=== PATIENT | male | born 1955 | race Caucasian/White ===

== ENCOUNTER → 2017-09-02 | Outpatient (CLI) | payer OTHER ==
[~2017-09-02] MED LIST: ANTIVERT25 MG PO; ASPIR 8181 M1 PO; ASPIRIN EC81 M1 PO; AUGMENTIN 875-1 EACH PO; BUSPAR30 MG PO; CALCIUM 1,0001 EACH PO; CENTRUM SILVER1 EAC4 PO; CINNAMON ALPHA1 EACH PO; CRANBERRY 6,001 EACH PO; DEPAKOTE ER500 MG PO; DEPAKOTE250 MG PO; DIVALPROEX SOD250 M3 PO; FAZACLO PO; FISH OIL 1,0001 EAC8 PO; FOLIC ACID0.4 MG PO; HYDROCODON-ACE1 EAC5 PO; HYDROCODON-ACE1 EAC8 PO; KELP1 EACH PO; LEVAQUIN 750 M750 MG PO; LEVOTHYROXINE0.05 MG PO; MAGNESIUM400 MG PO; MIRTAZAPINE7.5 MG PO; NIFEDICAL XL30 MG PO; NIFEDICAL XL60 MG PO; POLYETHYLENE G454 GM MC; POLYETHYLENE GLY; PROBIOTIC1 EAC1 PO; SAW PALMETTO500 MG PO; SUPER B COMPLE1 EAC2 PO; SYNTHROID75 MCG PO; VENLAFAXIN75 MG/1 T2 PO; VITAMIN D400 UNI1 PO; WELLBUTRIN 100100 M1 PO; WELLBUTRIN 75 M75 M1 PO; WELLBUTRIN SR150 MG PO; XANAX 0.5 MG0.5 M1 PO; ZINC10 MG PO; ZOFRAN 4 MG ORAL4 MG PO
[2017-09-02 16:15] LABS: ALBUMIN 3.5 g/dL (3.4-5.0); CALCIUM 8.7 mg/dL (8.5-10.1); CREATININE 0.8 mg/dL (0.6-1.3); POTASSIUM 4.1 mmol/L (3.5-5.1); TOTAL BILIRUBIN 0.2 mg/dL (<0.1-1.0); TOTAL PROTEIN 6.4 g/dL (6.4-8.2)
== END ==
LOC: M.LAB 15:40
PROVIDERS: Psychiatry & Neurology Psychiatry
DX: F25.0 Schizoaffective disorder, bipolar type (principal)

== ENCOUNTER 2017-10-10 01:18 | Emergency (ER) | payer OTHER ==
[~2017-10-10] VITALS: Ht 175.3 cm; Wt 74.8 kg
[~2017-10-10 01:18] MED LIST changes: -ANTIVERT25 MG PO; -AUGMENTIN 875-1 EACH PO; -LEVAQUIN 750 M750 MG PO; -WELLBUTRIN 75 M75 M1 PO; -ZOFRAN 4 MG ORAL4 MG PO
[2017-10-10] MEDS ORDERED: WELLBUTRIN 75 M75 M1 PO (01:30)
[2017-10-10 01:42] LABS: HEMATOCRIT 42.8 % (42.0-52.0); HEMOGLOBIN 14.8 gm/dL (14.0-18.0); MCHC 34.6 g/dL (28.0-37.0); NUCLEATED RBCS 0 /100WBC
[2017-10-10 01:43] LABS: MCH 30.7 pg (26.0-34.0); MCV 88.6 fL (80.0-100.0); MPV 7.7 fl. (7.2-11.1); PLATELET COUNT* 145 thou/uL (150-400); RBC 4.83 mil/uL (4.50-6.00); RDW-CV 13.1 % (10.5-14.5); WBC 11.6 thou/uL (4.0-11.0)
[2017-10-10 02:03] LABS: ANION GAP 10 mmol/L (7-16); BUN 12 mg/dL (7-18); CALCIUM 8.5 mg/dL (8.5-10.1); CHLORIDE 96 mmol/L (98-107); CO2 27 mmol/L (21-32); CREATININE 0.9 mg/dL (0.6-1.3); GLUCOSE 121 mg/dL (70-99); POTASSIUM 3.7 mmol/L (3.5-5.1); SODIUM 133 mmol/L (136-145)
[2017-10-10 02:17] LABS: ALBUMIN 3.7 g/dL (3.4-5.0); ALKALINE PHOSPHATASE 56 U/L (46-116); INR 1.1; NT-PRO BRAIN NAT PEPTIDE 103 pg/mL (<300); PROTIME 10.7 Seconds (9.20-11.50); SGOT 15 U/L (15-37); SGPT 26 U/L (30-65); TOTAL BILIRUBIN 0.4 mg/dL (<0.1-1.0); TOTAL PROTEIN 6.8 g/dL (6.4-8.2); TROPONIN-I LEVEL <0.06 ng/mL (<0.06)
[2017-10-10 02:19] LABS: INFLUENZA A ANTIGEN None Detected (None Detect); INFLUENZA B ANTIGEN None Detected (None Detect)
[2017-10-10 02:33] LABS: ABSOLUTE MONOCYTES 1.3 thou/uL (0.0-1.2); ABSOLUTE NEUTROPHILS 8.4 thou/uL (1.6-8.1); PLATELET ESTIMATE DECREASED
[2017-10-10 02:34] LABS: TOXIC GRANULATION 1+
[2017-10-10 03:19] LABS: URINE BILIRUBIN NEGATIVE (Negative); URINE BLOOD NEGATIVE (Negative); URINE CLARITY CLEAR; URINE COLOR YELLOW; URINE GLUCOSE-RANDOM NEGATIVE (Negative); URINE KETONES NEGATIVE (Negative); URINE LEUKOCYTES-REFLEX NEGATIVE (Negative); URINE NITRITE-REFLEX NEGATIVE (Negative); URINE PROTEIN NEGATIVE (Negative); URINE UROBILINOGEN 0.2 E.U./dl (0.2-1.0)
[2017-10-10 03:50] VITALS: BP 136/70
--- NOTE | 2017-10-11 12:59 | EKG ---
[place] [address] ELECTROCARDIOGRAM REPORT Name: MARISSA GUARDADO [id number] Admission: 10/10/17 Attend Phys: Discharge: 10/10/17 Date of : 55 Report #: [id number] THIS REPORT FOR: //name// [facility] ED Test Date: 2017-10-10 Test Time: 01:43:40 Pat Name: MARISSA GUARDADO Department: Room: Gender: M Catering Sales Manager: PURA Frank : 1955 Requested By: Leatha Garcia Order Number: [id number] MD: Reuben Manzo Measurements Intervals [place] Rate: 82 P: 40 FL: 152 QRS: 27 QRSD: 88 T: 36 QT: 337 QTc: 394 Interpretive Statements Sinus rhythm Probable left atrial enlargement Borderline low voltage, extremity leads Baseline wander in lead(s) V4 Compared to ECG 05/15/2015 17:35:55 Atrial premature complex(es) no longer present Prolonged QT interval no longer present Electronically Signed On 10-11-2017 12:59:30 CDT by Reuben Manzo [email or web address] <ELECTRONICALLY SIGNED> By: Elena Manzo MD, [facility] 10/11/17 1259 0143 0143 Elena Manzo MD, [facility] /EPI
== END 2017-10-10 04:05 | disposition home or self-care (01) ==
LOC: M.ERS 01:18
PROVIDERS: Emergency Medicine
DX: R53.1 Weakness (principal); R10.9 Unspecified abdominal pain; R11.0 Nausea; Z88.2 Allergy status to sulfonamides

== ENCOUNTER 2017-10-12 12:59 | Emergency (ER) | payer OTHER ==
[~2017-10-12] VITALS: Ht 175.3 cm; Wt 76.7 kg
[~2017-10-12 12:59] MED LIST changes: +WELLBUTRIN 75 M75 M1 PO
[2017-10-12 13:46] LABS: HEMATOCRIT 41.1 % (42.0-52.0); HEMOGLOBIN 14.3 gm/dL (14.0-18.0); MCH 30.5 pg (26.0-34.0); MCHC 34.7 g/dL (28.0-37.0); MCV 87.8 fL (80.0-100.0); NUCLEATED RBCS 0 /100WBC; PLATELET COUNT* 85 thou/uL (150-400); RBC 4.68 mil/uL (4.50-6.00); RDW-CV 12.8 % (10.5-14.5); WBC 8.3 thou/uL (4.0-11.0)
[2017-10-12 13:58] LABS: ANION GAP 13 mmol/L (7-16); APTT 30.8 Seconds (25.0-31.3); BUN 21 mg/dL (7-18); CALCIUM 8.2 mg/dL (8.5-10.1); CHLORIDE 95 mmol/L (98-107); CO2 23 mmol/L (21-32); CREATININE 1.2 mg/dL (0.6-1.3); GLUCOSE 149 mg/dL (70-99); INR 1.2; POTASSIUM 3.3 mmol/L (3.5-5.1); SODIUM 131 mmol/L (136-145)
[2017-10-12 14:00] LABS: ABSOLUTE LYMPHOCYTES 0.8 thou/uL (0.8-5.3); ABSOLUTE MONOCYTES 1.9 thou/uL (0.0-1.2); ABSOLUTE NEUTROPHILS 5.6 thou/uL (1.6-8.1); LARGE PLATELETS FEW; PLATELET ESTIMATE DECREASED
[2017-10-12 14:15] LABS: URINE BILIRUBIN 1+ (Negative); URINE BLOOD NEGATIVE (Negative); URINE CLARITY SL CLOUDY; URINE COLOR DARK YELLOW; URINE GLUCOSE-RANDOM NEGATIVE (Negative); URINE KETONES TRACE (Negative); URINE LEUKOCYTES-REFLEX NEGATIVE (Negative); URINE NITRITE-REFLEX POSITIVE (Negative); URINE PROTEIN 2+ (Negative); URINE SPECIFIC GRAVITY 1.025 (1.005-1.030)
[2017-10-12 14:19] LABS: ALBUMIN 2.9 g/dL (3.4-5.0); ALKALINE PHOSPHATASE 45 U/L (46-116); CK-MB MASS 1.5 ng/mL (<0.5-3.6); NT-PRO BRAIN NAT PEPTIDE 130 pg/mL (<300); SGOT 82 U/L (15-37); SGPT 74 U/L (30-65); TOTAL BILIRUBIN 0.5 mg/dL (<0.1-1.0); TOTAL PROTEIN 6.2 g/dL (6.4-8.2); TROPONIN-I LEVEL <0.06 ng/mL (<0.06)
[2017-10-12 14:38] LABS: CRYSTALS None Seen /LPF (None Seen); HYALINE CASTS >10 Many /LPF (None Seen); SQUAMOUS 0-3 Few /LPF (0-3); URINE RBC None Seen /HPF (0-2); URINE WBC-REFLEX 0-5 Rare /HPF (0-5)
[2017-10-12 14:39] LABS: ICTOTEST (BILI CONFIRMATORY) Negative (Negative)
[2017-10-12] MEDS ORDERED: LEVAQUIN 750 M750 MG PO (14:48)
[2017-10-12] MEDS ORDERED: ZOFRAN 4 MG ORAL4 MG PO (14:48)
[2017-10-12] MEDS ORDERED: ANTIVERT25 MG PO (14:48)
[2017-10-12] MEDS ORDERED: AUGMENTIN 875-1 EACH PO (14:50)
[2017-10-12 15:31] VITALS: BP 116/69
--- NOTE | 2017-10-12 16:49 | EKG ---
[place] [address] ELECTROCARDIOGRAM REPORT Name: MARISSA GUARDADO [id number] Admission: 10/12/17 Attend Phys: Discharge: 10/12/17 Date of : 55 Report #: [id number] THIS REPORT FOR: //name// [facility] ED Test Date: 2017-10-12 Test Time: 13:21:07 Pat Name: MARISSA GUARDADO Department: Room: Gender: M Caving Guide: MARLA : 1955 Requested By: Gómez Arzate Order Number: [id number] MD: Rasta Martinez Measurements Intervals [place] Rate: 77 P: 56 GA: 142 QRS: 53 QRSD: 90 T: 54 QT: 349 QTc: 395 Interpretive Statements Sinus rhythm Baseline wander in lead(s) V4 Compared to ECG 10/10/2017 01:43:40 No significant changes Electronically Signed On 10-12-2017 16:49:23 CDT by Rasta Martinez [email or web address] <ELECTRONICALLY SIGNED> By: Rasta Martinez MD, [facility] 10/12/17 1649 D: 03/1320 1321 Rasta Martinez MD, [facility] /EPI
== END 2017-10-12 15:32 | disposition home or self-care (01) ==
LOC: M.ERS 12:59
PROVIDERS: Emergency Medicine Emergency Medical Services
DX: R42 Dizziness and giddiness (principal); J18.9 Pneumonia, unspecified organism; N39.0 Urinary tract infection, site not specified

== ENCOUNTER → 2019-05-20 | Outpatient (CLI) | payer OTHER ==
[~2019-05-20] MED LIST changes: +ANTIVERT25 MG PO; +AUGMENTIN 875-1 EACH PO; +LEVAQUIN 750 M750 MG PO; +ZOFRAN 4 MG ORAL4 MG PO
[2019-05-20 16:47] LABS: ALBUMIN 3.5 g/dL (3.4-5.0); CALCIUM 8.9 mg/dL (8.5-10.1); CREATININE 0.9 mg/dL (0.6-1.3); TOTAL BILIRUBIN 0.3 mg/dL (<0.1-1.0); TOTAL PROTEIN 6.5 g/dL (6.4-8.2)
== END ==
LOC: M.LAB 15:48
PROVIDERS: Psychiatry & Neurology Psychiatry
DX: F25.0 Schizoaffective disorder, bipolar type (principal)

== ENCOUNTER 2020-04-30 15:09 | Emergency (ER) | payer OTHER ==
[~2020-04-30] VITALS: Ht 175.3 cm; Wt 81.7 kg
[2020-04-30] MEDS ORDERED: CLONAZEPAM 0.50.5 M1 PO (15:31)
[2020-04-30] MEDS ORDERED: DEPAKOTE ER500 M1 PO (15:31)
[2020-04-30] MEDS ORDERED: [UNRECOGNIZED DRUG - OTHER] (15:32)
[2020-04-30 16:17] LABS: INFLUENZA A ANTIGEN Negative (Negative); INFLUENZA B ANTIGEN Negative (Negative)
[2020-04-30 16:34] LABS: URINE BILIRUBIN NEGATIVE (Negative); URINE BLOOD NEGATIVE (Negative); URINE CLARITY CLEAR; URINE COLOR YELLOW; URINE GLUCOSE-RANDOM NEGATIVE (Negative); URINE KETONES 1+ (Negative); URINE LEUKOCYTES-REFLEX NEGATIVE (Negative); URINE NITRITE-REFLEX NEGATIVE (Negative); URINE PROTEIN TRACE (Negative); URINE SPECIFIC GRAVITY >= 1.030 (1.005-1.030); URINE UROBILINOGEN 0.2 E.U./dl (0.2-1.0)
[2020-04-30 17:03] LABS: ABSOLUTE BASOPHILS 0.1 thou/uL (0.0-0.2); ABSOLUTE EOSINOPHILS 0.2 thou/uL (0.0-0.7); ABSOLUTE LYMPHOCYTES 2.1 thou/uL (0.8-5.3); ABSOLUTE MONOCYTES 1.9 thou/uL (0.0-1.2); ABSOLUTE NEUTROPHILS 8.2 thou/uL (1.6-8.1); BASOPHILS 0.4 %; EOSINOPHILS 1.6 %; HEMATOCRIT 38.5 % (42.0-52.0); HEMOGLOBIN 12.8 gm/dL (14.0-18.0); LYMPHOCYTES 16.7 %; MCH 26.9 pg (26.0-34.0); MCHC 33.3 g/dL (28.0-37.0); MCV 80.7 fL (80.0-100.0); MONOCYTES 15.2 %; MPV 7.9 fl. (7.2-11.1); NUCLEATED RBCS 0 /100WBC; PLATELET COUNT* 235 thou/uL (150-400); POLYS 66.1 %; RBC 4.77 mil/uL (4.50-6.00); RDW-CV 17.2 % (10.5-14.5); WBC 12.4 thou/uL (4.0-11.0)
[2020-04-30 17:11] LABS: CALCIUM 8.5 mg/dL (8.5-10.1); CREATININE 0.9 mg/dL (0.6-1.3)
[2020-04-30 17:16] LABS: ALBUMIN 3.3 g/dL (3.4-5.0); TOTAL BILIRUBIN 0.3 mg/dL (<0.1-1.0); TOTAL PROTEIN 6.6 g/dL (6.4-8.2)
[2020-04-30 18:28] VITALS: BP 141/77
== END 2020-04-30 18:29 | disposition home or self-care (01) ==
LOC: M.ERS 15:09
PROVIDERS: Personal Emergency Response Attendant
DX: B34.9 Viral infection, unspecified (principal); Z20.828 Contact with and (suspected) exposure to other viral communicable diseases; R53.1 Weakness; R42 Dizziness and giddiness; Z79.899 Other long term (current) drug therapy; Z91.040 Latex allergy status; Z88.2 Allergy status to sulfonamides

== ENCOUNTER 2021-04-08 23:41 | Inpatient (IN) | payer OTHER ==
[~2021-04-08] VITALS: Ht 154.9 cm; Wt 81.6 kg
[~2021-04-08 23:41] MED LIST changes: +CLONAZEPAM 0.50.5 M1 PO; +DEPAKOTE ER500 M1 PO; +[UNRECOGNIZED DRUG - OTHER]
[2021-04-08 23:52] VITALS: BP 130/75
[2021-04-08] MEDS ORDERED: DIAZEPAM 2MG TAB2 MG PO (23:57)
[2021-04-08] MEDS ORDERED: XANAX2 MG PO (23:57)
[2021-04-09 00:50] LABS: ABSOLUTE LYMPHOCYTES 0.6 thou/uL (0.8-5.3); ABSOLUTE MONOCYTES 1.3 thou/uL (0.0-1.2); ABSOLUTE NEUTROPHILS 5.8 thou/uL (1.6-8.1); BASOPHILS 0.2 %; HEMATOCRIT 37.9 % (42.0-52.0); HEMOGLOBIN 13.4 gm/dL (14.0-18.0); LYMPHOCYTES 7.5 %; MCHC 35.3 g/dL (28.0-37.0); MCV 84.9 fL (80.0-100.0); MONOCYTES 16.7 %; MPV 8.6 fl. (7.2-11.1); NUCLEATED RBCS 0 /100WBC; PLATELET COUNT* 146 thou/uL (150-400); POLYS 75.6 %; RBC 4.46 mil/uL (4.50-6.00); RDW-CV 14.3 % (10.5-14.5); WBC 7.7 thou/uL (4.0-11.0)
[2021-04-09 01:05] LABS: CREATININE 1.1 mg/dL (0.6-1.3); POTASSIUM 3.6 mmol/L (3.5-5.1)
[2021-04-09 01:17] LABS: ALBUMIN 3.2 g/dL (3.4-5.0); MAGNESIUM 2.7 mg/dL (1.8-2.4); TOTAL BILIRUBIN 0.3 mg/dL (<0.1-1.0); TOTAL PROTEIN 6.5 g/dL (6.4-8.2)
[2021-04-09 03:24] LABS: URINE BILIRUBIN NEGATIVE (Negative); URINE BLOOD 1+ (Negative); URINE CLARITY CLEAR; URINE COLOR YELLOW; URINE GLUCOSE-RANDOM NEGATIVE (Negative); URINE KETONES TRACE (Negative); URINE LEUKOCYTES-REFLEX NEGATIVE (Negative); URINE NITRITE-REFLEX NEGATIVE (Negative); URINE PROTEIN TRACE (Negative); URINE SPECIFIC GRAVITY 1.025 (1.005-1.030); URINE UROBILINOGEN 0.2 E.U./dl (0.2-1.0)
[2021-04-09 03:30] LABS: AMP/METHAMP Negative (Negative); BARBITURATES Negative (Negative); BENZODIAZEPINES Negative (Negative); COCAINE Negative (Negative); METHADONE Negative (Negative); OPIATES Negative (Negative); PCP Negative (Negative); THC Negative (Negative)
[2021-04-09 03:47] LABS: HYALINE CASTS 0-3 Few /LPF (None Seen); SQUAMOUS 0-3 Few /LPF (0-3); URINE WBC-REFLEX 0-5 Rare /HPF (0-5)
[2021-04-09 03:48] LABS: BACTERIA-REFLEX 1-9 Few /HPF (None Seen); CRYSTALS None Seen /LPF (None Seen); URINE RBC 0-2 Rare /HPF (0-2)
[2021-04-09 06:57] VITALS: BP 143/86
[2021-04-09 08:00] VITALS: BP 140/71
--- NOTE | 2021-04-09 08:00 | NUR ---
CHANGE OF SHIFT REPORT GIVEN PATIENT LAYING IN BED JUST ARRIVED FROM ER TO RM 104 ORIENTED TO CALL LIGHT AND BED ALARM SET DENIES PAIN
[2021-04-09] MEDS ORDERED: NORVASC10 MG PO (10:39)
[2021-04-09] MEDS ORDERED: LEVO-T100 MCG PO (10:41)
[2021-04-09] MEDS ORDERED: WELLBUTRIN XL150 MG PO (10:41)
[2021-04-09] MEDS ORDERED: DEPAKOTE ER500 M1 PO (10:48)
[2021-04-09] MEDS ORDERED: SILDENAFIL CIT100 MG PO (10:50)
[2021-04-09] MEDS ORDERED: CLOZAPINE200 MG PO (10:55)
--- NOTE | 2021-04-09 11:39 | EKG ---
[place] [address] ELECTROCARDIOGRAM REPORT Name: MARISSA GUARDADO Room: [address] M.R.#: [id number] Admission: 04/09/21 Attend Phys: Oscar Anderson, Discharge: Date of : 55 Date of Service: 04/08/21 2345 Report #: [id number] THIS REPORT FOR: //name// [facility] ED Test Date: 2021-04-08 Test Time: 23:45:06 Pat Name: MARISSA GUARDADO Department: Room: [address] Gender: M Process Manufacturing Engineer: [place] : 1955 Requested By: Joya Moore Order Number: [id number] MD: Rasta Martinez Measurements Intervals [place] Rate: 81 P: 9 MA: 171 QRS: 2 QRSD: 80 T: 14 QT: 375 QTc: 436 Interpretive Statements Sinus rhythm Low voltage, precordial leads Baseline wander in lead(s) II,III,aVR,aVF,V3 Compared to ECG 10/12/2017 13:21:07 Low QRS voltage now present Electronically Signed On 04-09-2021 11:39:29 CDT by Rasta Martinez [email or web address] <ELECTRONICALLY SIGNED> By: Rasta Martinez MD, [facility]ACC 04/09/21 1139 2345 2345 Rasta Martinez MD, [facility] /EPI
[2021-04-09 12:00] VITALS: BP 137/73
--- NOTE | 2021-04-09 18:13 | NUR ---
CM ATTEMPTED TO CONTACT PT VIA PHONE AND PT'S CONTACT, ALFRED. GOT A VM BUT MESSAGES WERE FULL SO COULD NOT LEAVE A MESSAGE.
[2021-04-09 20:00] VITALS: BP 117/64
[2021-04-10] VITALS (7 sets, daily range): BP systolic 100–136; BP diastolic 54–76
--- NOTE | 2021-04-10 04:07 | NUR ---
ASSUMED PT CARE AT APPROX 1930. PT IS AWAKE, ORIENTED TO SELF AND SOMETIMES TO PLACE, FORGETFUL AND HAS FLIGHT OF IDEAS. PT IS TRACING SR ON THE SUPERVISOR RECORD PRESS. PT IS NOT IN RESPIRATORY DISTRESS, NO DESATURATIONS NOTED ON ROOM AIR. PT IS FEBRILE, Tmax 101.2-DR OLSEN MADE AWARE. TYLENOL GIVEN FOR FEVER- SEE ELECTRONIC CHART FOR VITALS. PT IS CLOSELY MONITORED. HIGH FALL PRECAUTIONS IN PLACE.
[2021-04-10 05:08] LABS: HEMATOCRIT 35.8 % (42.0-52.0); HEMOGLOBIN 12.5 gm/dL (14.0-18.0); MCH 29.9 pg (26.0-34.0); MCHC 34.9 g/dL (28.0-37.0); MCV 85.9 fL (80.0-100.0); MPV 8.4 fl. (7.2-11.1); RBC 4.17 mil/uL (4.50-6.00); RDW-CV 14.7 % (10.5-14.5)
[2021-04-10 05:12] LABS: CALCIUM 7.4 mg/dL (8.5-10.1); CREATININE 0.9 mg/dL (0.6-1.3); POTASSIUM 3.3 mmol/L (3.5-5.1)
--- NOTE | 2021-04-10 14:41 | NUR ---
Covid positive. CM spoke with Pt's geological sample tester/friend, Lisandro [phone]. Pt resides at home alone. Normally independent, friends and congregational family available to assist as needed. Pt continues to drive in town. No DME. No home o2. Pt has a pysch hx and was recently at [facility], Pt's community psychiatrist is Dr Wiley at [facility]. Pt currently on 2L o2. Tele psych consulted. Therapies to see. If pt needs skilled at dc, will need a Level 2 screening d/t recently inpt psych stay. Per geological sample tester, Pt has had more difficulty with his medication regime, nothing seems to work assisted. Pt has a brother that lives in [facility]. CM following.
--- NOTE | 2021-04-10 17:04 | NUR ---
PATIENT RSTING UP IN CHAIR. PATIENT HAS SLEPT MOST OF DAY. PATIENT FEBRILE THIS AM BUT FEVER HAS BROKE AT THIS TIME. PATIENT GIVEN BED BATH AND CLEAN SHEETS DUE TO SWEATING. PATIENT WAS INCONTINENT THIS AM BUT USED COMMODE THIS EVENING. PATIENT HAS POOR APPETITE. PATIENT DENIES ANY PAIN. PATIENT PLACED ON 2L/NC AND O2 SATS REMAIN IN LOW 90'S. PATIENT HAS NON-PRODUCTIVE COUGH. PATIENT DENIES ANY NEEDS AT THIS TIME. CHAIR ALARM ON. CALL LIGHT WITHIN REACH.
[2021-04-11 04:33] LABS: HEMOGLOBIN 13.5 gm/dL (14.0-18.0); MCH 30.2 pg (26.0-34.0); MCHC 34.6 g/dL (28.0-37.0); MCV 87.3 fL (80.0-100.0); MPV 9.6 fl. (7.2-11.1); RBC 4.47 mil/uL (4.50-6.00); RDW-CV 14.3 % (10.5-14.5)
[2021-04-11 05:02] LABS: CREATININE 0.8 mg/dL (0.6-1.3); POTASSIUM 3.8 mmol/L (3.5-5.1)
[2021-04-11 05:41] LABS: WBC 1.7 thou/uL (4.0-11.0)
[2021-04-11 05:55] VITALS: BP 97/71
[2021-04-11 07:45] VITALS: BP 133/70
[2021-04-11 12:00] VITALS: BP 120/68
--- NOTE | 2021-04-11 14:27 | NUR ---
Tele psych completed yesterday, neuro consulted. Pt remains on 2L o2, continue to wean. Therapies to see. Anticipate dc in 1-2 days.
[2021-04-11 16:00] VITALS: BP 123/68
--- NOTE | 2021-04-11 17:45 | NUR ---
PATIENT RESTING IN BED. PATIENT HAS BEEN UP TO CHAIR FOR MEALS. PATIENT IS UP WITH ASSIST OF ONE, UNSTEADY. PATIENT HAS BEEN ALERT AND ORIENTED TODAY. PATIENT HAS USED CALL LIGHT APPROPRIATLEY AND HAS NOT SET OFF BED/CHAIR ALARMS. PATIENT HAS BEEN INCONTINENT OF URINE AT TIMES. PATIENT HAS GOOD APPETITE. PATIENT IS ON 2L/NC. PATIENT DENIES ANY NEEDS AT THIS TIME. CALL LIGHT WITHIN REACH.
[2021-04-11 20:03] VITALS: BP 106/76
[2021-04-12 00:06] VITALS: BP 130/77
[2021-04-12 04:00] VITALS: BP 125/66
[2021-04-12 04:35] LABS: HEMATOCRIT 40.5 % (42.0-52.0); HEMOGLOBIN 13.9 gm/dL (14.0-18.0); MCH 29.5 pg (26.0-34.0); MCHC 34.3 g/dL (28.0-37.0); MCV 86.1 fL (80.0-100.0); MPV 8.3 fl. (7.2-11.1); RBC 4.71 mil/uL (4.50-6.00); RDW-CV 14.4 % (10.5-14.5); WBC 5.2 thou/uL (4.0-11.0)
[2021-04-12 04:57] LABS: ALBUMIN 2.8 g/dL (3.4-5.0); CALCIUM 8.1 mg/dL (8.5-10.1); CREATININE 0.8 mg/dL (0.6-1.3); POTASSIUM 3.9 mmol/L (3.5-5.1); TOTAL BILIRUBIN 0.3 mg/dL (<0.1-1.0); TOTAL PROTEIN 6.2 g/dL (6.4-8.2)
[2021-04-12 07:20] VITALS: BP 114/77
[2021-04-12 11:30] VITALS: BP 109/73
--- NOTE | 2021-04-12 14:20 | NUR ---
Anticipate dc tomorrow. PT to see. Neuro consulted. Down to 1L, continue to wean. Tele psych reconsulted for further recs
[2021-04-12 15:00] VITALS: BP 104/67
--- NOTE | 2021-04-12 16:52 | NUR ---
PT REMAINED ALERT AND ORIENTED. TELE PSYCH CONSULT. PT UP FOR MEALS. FALL RISK OPRECAUTIONS IN PLACE. SEIZURE PRECAUTIONS IN PLACE. HOURLY ROUNDING COMPLETED. CALL LIGHT WIHTIN REACH. HEART MONITORED.
[2021-04-12 20:00] VITALS: BP 109/71
[2021-04-13 00:17] VITALS: BP 112/72
[2021-04-13 04:29] VITALS: BP 114/72
[2021-04-13 07:10] VITALS: BP 112/70
[2021-04-13 13:24] VITALS: BP 112/70
[2021-04-13 13:27] VITALS: BP 112/70
--- NOTE | 2021-04-13 14:27 | NUR ---
PT GIVEN DISCHARGE INFORMATION. HOME HEALTH SET UP. HOME OXYGENN SET UP. IV AND HEART MONITORE REMOVED. FALL RISK PRECAUTIONS IN PLACE. HOURLY ROUNDING COMPLETED.
--- NOTE | 2021-04-17 08:41 | CON ---
[address] [address] CONSULTATION Name: GUARDADOMARISSA NOLAN Room: [address] [place] M.R.#: [id number] Admission: 04/09/21 Attend Phys: Oscar Anderson MD Discharge: 04/13/21 Date of : 55 Report #: [id number] THIS REPORT FOR: cc: Rusty Machado MD, Matthew W. MD Khosla, Parveen K. MD ~ DATE OF CONSULTATION: 04/12/2021 HISTORY OF PRESENT ILLNESS: This is a 65-year-old male patient who was seen by me yesterday and then I talked with the referring physician, Dr. Villatoro and saw him again today, and this is a combined note. Talking to Dr. Villatoro, a neurology consultation was requested just to make sure nothing neurological is going on. I talked to the patient and he says he is pretty close to his baseline as far as mentation is concerned. His main complaint is coughing at the moment. He still requires oxygen. REVIEW OF SYSTEMS: Indicate that he does have a psychiatric history in the past, but he feels reasonably well at the moment. The patient has COVID and he is improving from that, but he still think that symptoms are significant. He was having weakness and falls as I understand, but he is not complaining of any pain anywhere except the chest pain. He never hit any head as I understand from him. The problem appeared to be going on for some time, but he does not know how long it is going on. A 14-point review of systems was otherwise mainly positive for psychiatric history. There is some note to the fact of seizure and he did not provide any history to me in that regard. PHYSICAL EXAMINATION: The patient's examination was carried out yesterday as well as today. He is alert. He can tell me it is March. He got the date right yesterday and was missed it by 1 day, today. He knew what hospital he is in. He did have trouble naming the president. Cranial nerve examination 212 was attempted. It appears unremarkable. He moves all 4 extremities for me. His strength is diminished in generalized fashion and is 4/5, but otherwise it looks pretty symmetrical. His reflexes in the lower extremities appeared to be intact. He says he can feel well on both sides. He does [id number] reasonably well. He does still have respiratory difficulty. Cardiac examination was unremarkable. I reviewed multiple notes and he had a physical therapy evaluation, looks like his activity was limited at that time, but appeared to be doing better now and he did not complain of much pain when I moved his legs, but I did not make him walk. IMPRESSION: 1. The patient's Neurology consultation is requested for altered mental status, the best I can tell by talking to the admitting doctor. He believe his mentation is close to the baseline. Records [place] [address] CONSULTATION Name: MARISSA GUARDADO Room: [address] [place] M.R.#: [id number] Admission: 04/09/21 Attend Phys: Oscar Anderson MD Discharge: 04/13/21 Date of : 55 Report #: [id number] clinically also, he looks improved. He did have a CT scan of the head which was unremarkable. He had the blood workup done. His lipid profile in 2019 was markedly abnormal. His vitamin B12 in 2014 was normal and he has a TSH at this time, which was normal. IMPRESSION: This patient's symptoms was most likely related to COVID as well as poor living at home. I will suggest continue therapy. I do not believe MRI will add much at the moment of the brain. I think we can continue to watch his clinical status and see if his cognition continue to improve and if it does, I do not think neurologically much need to be done. I will suggest ambulating this patient with the help of physical therapy because the last time he received physical therapy, was on 14. If he complained of pain whether in the legs or spine, that portion need to be evaluated further and I will defer that evaluation and management to the admitting doctor. Appropriate surgical product sales consultant can be consulted if any pathology is found as far as altered mental status is concern for which a Neurology consultation was requested and I will confine myself to that. I will suggest just observing. If he is close to his baseline and stays there, I do not think much neurological workup is needed for any altered mental status. I will check with admitting physician again today. Combined time from yesterday and today, which was spent with this patient, was more than 50 minutes and majority was spent counseling and coordinating. I will follow this patient p.r.n. only. Please call if there is any question, but we will suggest ambulating him by Physical Therapy and if pain is detected, workup that portion of the body or even decrease mobility is suspected, then checking the spine. He also has a dyslipidemia, which can also be treated. <ELECTRONICALLY SIGNED> By: Artis Matthews MD 04/17/21 0841 1226 [id number] Matthews MD /nt
== END 2021-04-13 14:29 | disposition home health service (06) | DRG 177 ==
LOC: M.ERS 23:41 → M.ORTHSURG 04-09 03:14 → M.TBA-ER 04-09 03:14 → M.ORTHSURG 04-09 07:07
PROVIDERS: Family Medicine; Personal Emergency Response Attendant; ADMIT Internal Medicine; ATTEND Internal Medicine
PROC: XW033E5 Introduction of Remdesivir Anti-infective into Peripheral Vein, Percutaneous Approach, New Technology Group 5 (ICD-10-PCS; principal; 2021-04-11)
DX: U07.1 COVID-19 (principal); G93.41 Metabolic encephalopathy; E87.1 Hypo-osmolality and hyponatremia; E87.6 Hypokalemia; F32.9 Major depressive disorder, single episode, unspecified; F41.9 Anxiety disorder, unspecified; E66.9 Obesity, unspecified; F20.9 Schizophrenia, unspecified; Z88.2 Allergy status to sulfonamides; Z91.040 Latex allergy status

== ENCOUNTER → 2021-09-16 | Outpatient (CLI) | payer OTHER ==
[~2021-09-16] MED LIST changes: +CLOZAPINE200 MG PO; +DIAZEPAM 2MG TAB2 MG PO; +LEVO-T100 MCG PO; +NORVASC10 MG PO; +SILDENAFIL CIT100 MG PO; +WELLBUTRIN XL150 MG PO; +XANAX2 MG PO
== END ==
LOC: M.LAB 12:43
PROVIDERS: ATTEND Internal Medicine
DX: F25.1 Schizoaffective disorder, depressive type (principal)